=== PATIENT | female | born 1990 | race Caucasian/White ===

== ENCOUNTER 2018-06-24 17:00 | Emergency (ER) | payer MEDICARE, MEDICAID, SELFPAY ==
[2018-06-24 17:02] VITALS: BP 101/62; PULSE 63; RESP 14; TEMP 36.8; O2SAT 95
[2018-06-24] MEDS: predniSONE 20 MG TAB 40 MG PO (18:19)
[2018-06-24] MEDS: Albuterol HFA 8 GM 60 PUFF INH IH (18:30)
--- NOTE | 2018-06-24 18:30 | W.ED.GENAD ---
Discharge Plan Disposition Patient Disposition: HOME Condition: Stable Discharge Details Chief Complaint: SOB Clinical Impression: Asthma exacerbation, Environmental allergies Primary Care Provider: SARAHI,LOCAL ED Provider: Adrien Tucker Home Meds and New Rx's Prescriptions: New prednisone 20 mg tablet 40 mg PO DAILY Qty: 8 RF: 0 loratadine [Claritin] 10 mg tablet 10 mg PO DAILY Qty: 7 RF: 0 Continue buprenorphine HCl 2 MG tablet, sublingual 6 mg Sublingual DAILY RF: 0 albuterol sulfate [ProAir HFA] 200 PUFF HFA aerosol inhaler 200 puff Inhalation Q2H PRN PRN (Reason: Shortness Of Breath) Qty: 1 RF: 0 fluoxetine 20 MG tablet 20 mg PO DAILY Qty: 60 RF: 5 Discharge Instructions Instructions: Asthma (ED) Additional Instructions: Return immediately to the emergency department for any new or worsening symptoms such as fever chills, worsening shortness of breath or any further concerns he may have. Otherwise take medications as prescribed and follow-up with your primary care provider as established by care management for reassessment. Referrals: Primary Care Provider [Outside] (for re-check) Discharge Data Discharge Date/Time-TO BE ENTERED AT DEPARTURE: 06/24/18 18:47 Medical Decision Making Patient presenting to the emergency department for chief complaint of shortness of breath. Patient denies any fever or chills nasal congestion or sore throat but does state some itchy watery eyes and some nasal dryness. Patient reports history of asthma with previous need of admission extending all the way back into childhood. Patient states that she had an old inhaler that she has been using that is not been effective at controlling symptoms. Physical exam shows some prolonged expiration but no significant wheezing, no acute respiratory distress, no cardiac or other noted findings. There is concern for possible asthma exacerbation due to seasonal allergies so patient was placed on prednisone 40 mg daily for 4 days along with given a new inhaler with a spacer to see if this helps her. Patient otherwise being stable with no other acute distress or significant findings I do feel the patient is able to be safely discharged to return for new or worsening symptoms. Patient states that she does not have a local primary care provider so she is placed upon the care management list to arrange a new primary care provider along with a appointment for reassessment preferably in the next week. After discussion of diagnosis and plan of care patient is no further needs, questions, or concerns and states clear understanding to return to the emergency department for any worsening symptoms. HPI General Mode of arrival: ambulatory. Date/Time Provider Initiated Documentation: 06/24/18 18:15. Limitations to Documentation: no limitations. Information obtained by: patient. History of Present Illness 27 year old F presents to the emergency department with the chief complaint of SOB/Asthma, described as moderate, with intensity rated at 5. Quality is described as other (tightness), and is localized to the chest. Patient started experiencing this day(s) (3) and it has been constant. No relieving factors improve symptom(s), No exacerbating factors reported . Patient did receive the following treatments prior to arrival, other (inhaler) Related Data Home Medications Medication Instructions Recorded Confirmed albuterol sulfate [ProAir HFA] 200 puff INHALATION Q2H PRN PRN #1 01/25/17 06/24/18 inh buprenorphine HCl 6 mg SUBLINGUAL DAILY 01/25/17 06/24/18 fluoxetine 20 mg PO DAILY #60 tablet 02/23/17 06/24/18 loratadine [Claritin] 10 mg PO DAILY #7 tab 06/24/18 prednisone 40 mg PO DAILY #8 tab 06/24/18 Previous Rx's Medication Instructions Recorded albuterol sulfate [ProAir HFA] 200 puff INHALATION Q2H PRN PRN #1 01/25/17 inh fluoxetine 20 mg PO DAILY #60 tablet 02/23/17 loratadine [Claritin] 10 mg PO DAILY #7 tab 06/24/18 prednisone 40 mg PO DAILY #8 tab 06/24/18 Allergies Allergy/AdvReac Type Severity Reaction Status Date / Time amoxicillin Allergy Unknown as a kid Unverified 06/24/18 17:15 General Stated Complaint: SOB DARWIN: 3 Review of Systems Constitutional Denies body ache(s), Denies chills and Denies fever(s) Eyes Denies eye discharge and Reports itchy eyes ENT Denies nasal congestion and Denies nasal discharge Cardiovascular Denies chest pain and Reports dyspnea Respiratory Denies cough, Reports dyspnea and Denies wheezing Gastrointestinal Denies abdominal pain, Denies nausea and Denies vomiting Integumentary/Breasts Denies rash Neurologic Denies confusion and Denies sensory deficit Psychiatric Denies confusion Allergic/Immunologic Reports itchy eyes and Denies wheezing [facility] Medical History Asthma (Chronic) Social History Smoking/Tobacco Use Status: Current every day Exam Const General: cooperative, no acute distress and not ill appearing Orientation: alert, awake and oriented x3 HENMT Head: normal to inspection Ears: hearing grossly normal bilaterally and TM's normal bilaterally General nose exam: external nose normal Face and sinus: normal facial exam Mouth: moist mucous membranes Throat: posterior oropharynx normal and tonsils normal Resp Effort & Inspection: normal respiratory effort, able to speak in complete sentences, no audible wheezes, no cough, no respiratory distress and no use of accessory muscles Auscultation: clear to auscultation bilaterally Cardio Rate: regular rate Rhythm: regular rhythm Heart Sounds: S1 normal and S2 normal Skin General skin exam: no rashes or lesions noted Neuro General: alert, awake, oriented x3, moves all extremities and no focal motor deficits Sensory Exam: no sensory deficits noted Course Vital Signs Temperature 36.8 C 06/24/18 17:02 Pulse 63 06/24/18 17:02 Respiratory Rate 14 06/24/18 17:02 Blood Pressure 101/62 06/24/18 17:02 Pulse Oximetry 95 06/24/18 17:02 Temperature 36.8 C 06/24/18 17:02 Temperature Source Skin 06/24/18 17:02 Pulse 63 06/24/18 17:02 Respiratory Rate 14 06/24/18 17:02 Respiratory Effort 06/24/18 17:26 Respiratory Depth Normal 06/24/18 17:26 Respiratory Pattern Normal 06/24/18 17:26 Blood Pressure 101/62 06/24/18 17:02 Blood Pressure Position Sitting 06/24/18 17:02 Pulse Oximetry 95 06/24/18 17:02 Oxygen Delivery Method Room Air 06/24/18 17:02 Oxygen Flow Rate 0 06/24/18 17:02 Pain Level 4 06/24/18 17:02
--- NOTE | 2018-06-24 18:33 | ED.GENADUL_ITS ---
Discharge Plan Disposition Patient Disposition: HOME Condition: Stable Discharge Details Chief Complaint: SOB Clinical Impression: Asthma exacerbation, Environmental allergies Primary Care Provider: SARAHI,LOCAL ED Provider: Adrien Tucker Home Meds and New Rx's Prescriptions: New prednisone 20 mg tablet 40 mg PO DAILY Qty: 8 RF: 0 loratadine [Claritin] 10 mg tablet 10 mg PO DAILY Qty: 7 RF: 0 Continue buprenorphine HCl 2 MG tablet, sublingual 6 mg Sublingual DAILY RF: 0 albuterol sulfate [ProAir HFA] 200 PUFF HFA aerosol inhaler 200 puff Inhalation Q2H PRN PRN (Reason: Shortness Of Breath) Qty: 1 RF: 0 fluoxetine 20 MG tablet 20 mg PO DAILY Qty: 60 RF: 5 Discharge Instructions Instructions: Asthma (ED) Additional Instructions: Return immediately to the emergency department for any new or worsening symptoms such as fever chills, worsening shortness of breath or any further concerns he may have. Otherwise take medications as prescribed and follow-up with your primary care provider as established by care management for reassessment. Referrals: Primary Care Provider [Outside] (for re-check) Discharge Data Discharge Date/Time-TO BE ENTERED AT DEPARTURE: 06/24/18 18:47 Medical Decision Making Patient presenting to the emergency department for chief complaint of shortness of breath. Patient denies any fever or chills nasal congestion or sore throat but does state some itchy watery eyes and some nasal dryness. Patient reports history of asthma with previous need of admission extending all the way back into childhood. Patient states that she had an old inhaler that she has been using that is not been effective at controlling symptoms. Physical exam shows some prolonged expiration but no significant wheezing, no acute respiratory distress, no cardiac or other noted findings. There is concern for possible asthma exacerbation due to seasonal allergies so patient was placed on prednisone 40 mg daily for 4 days along with given a new inhaler with a spacer to see if this helps her. Patient otherwise being stable with no other acute distress or significant findings I do feel the patient is able to be safely discharged to return for new or worsening symptoms. Patient states that she does not have a local primary care provider so she is placed upon the care management list to arrange a new primary care provider along with a appointment for reassessment preferably in the next week. After discussion of diagnosis and plan of care patient is no further needs, questions, or concerns and states clear understanding to return to the emergency department for any worsening symptoms. HPI General Mode of arrival: ambulatory . Date/Time Provider Initiated Documentation: 06/24/18 18:15 . Limitations to Documentation: no limitations . Information obtained by: patient . History of Present Illness 27 year old F presents to the emergency department with the chief complaint of SOB/Asthma, described as moderate, with intensity rated at 5. Quality is described as other (tightness), and is localized to the chest. Patient started experiencing this day(s) (3) and it has been constant. No relieving factors improve symptom(s), No exacerbating factors reported . Patient did receive the following treatments prior to arrival, other (inhaler) Related Data Home Medications Medication Instructions Recorded Confirmed albuterol sulfate [ProAir HFA] 200 puff INHALATION Q2H PRN PRN #1 01/25/1706/24 inh buprenorphine HCl 6 mg SUBLINGUAL DAILY 01/25/17 06/24/18 fluoxetine 20 mg PO DAILY #60 tablet 02/23/17 06/24/18 loratadine [Claritin] 10 mg PO DAILY #7 tab 06/24/18 prednisone 40 mg PO DAILY #8 tab 06/24/18 Previous Rx's Medication Instructions Recorded albuterol sulfate [ProAir HFA] 200 puff INHALATION Q2H PRN PRN #1 01/25/17 inh fluoxetine 20 mg PO DAILY #60 tablet 02/23/17 loratadine [Claritin] 10 mg PO DAILY #7 tab 06/24/18 prednisone 40 mg PO DAILY #8 tab 06/24/18 Allergies Allergy/AdvReac Type Severity Reaction Status Date / Time amoxicillin Allergy Unknown as a kid Unverified 06/24/18 17:15 General Stated Complaint: SOB DARWIN: 3 Review of Systems Constitutional Denies body ache(s), Denies chills and Denies fever(s) Eyes Denies eye discharge and Reports itchy eyes ENT Denies nasal congestion and Denies nasal discharge Cardiovascular Denies chest pain and Reports dyspnea Respiratory Denies cough, Reports dyspnea and Denies wheezing Gastrointestinal Denies abdominal pain, Denies nausea and Denies vomiting Integumentary/Breasts Denies rash Neurologic Denies confusion and Denies sensory deficit Psychiatric Denies confusion Allergic/Immunologic Reports itchy eyes and Denies wheezing [facility] Medical History Asthma (Chronic) Social History Smoking/Tobacco Use Status: Current every day Exam Const General: cooperative, no acute distress and not ill appearing Orientation: alert, awake and oriented x3 HENMT Head: normal to inspection Ears: hearing grossly normal bilaterally and TM's normal bilaterally General nose exam: external nose normal Face and sinus: normal facial exam Mouth: moist mucous membranes Throat: posterior oropharynx normal and tonsils normal Resp Effort & Inspection: normal respiratory effort, able to speak in complete sentences, no audible wheezes, no cough, no respiratory distress and no use of accessory muscles Auscultation: clear to auscultation bilaterally Cardio Rate: regular rate Rhythm: regular rhythm Heart Sounds: S1 normal and S2 normal Skin General skin exam: no rashes or lesions noted Neuro General: alert, awake, oriented x3, moves all extremities and no focal motor deficits Sensory Exam: no sensory deficits noted Course Vital Signs Temperature 36.8 C 06/24/18 17:02 Pulse 63 06/24/18 17:02 Respiratory Rate 14 06/24/18 17:02 Blood Pressure 101/62 06/24/18 17:02 Pulse Oximetry 95 06/24/18 17:02 Temperature 36.8 C 06/24/18 17:02 Temperature Source Skin 06/24/18 17:02 Pulse 63 06/24/18 17:02 Respiratory Rate 14 06/24/18 17:02 Respiratory Effort 06/24/18 17:26 Respiratory Depth Normal 06/24/18 17:26 Respiratory Pattern Normal 06/24/18 17:26 Blood Pressure 101/62 06/24/18 17:02 Blood Pressure Position Sitting 06/24/18 17:02 Pulse Oximetry 95 06/24/18 17:02 Oxygen Delivery Method Room Air 06/24/18 17:02 Oxygen Flow Rate 0 06/24/18 17:02 Pain Level 4 06/24/18 17:02
[2018-06-24 18:45] VITALS: BP 112/80; PULSE 18; RESP 18; TEMP 36.8; O2SAT 99
== END 2018-06-24 18:47 | disposition home or self-care (01) ==
PROVIDERS: Emergency Provider Nurse Practitioner Family
DX: J45.901 Unspecified asthma with (acute) exacerbation (principal); J30.2 Other seasonal allergic rhinitis
CPT/HCPCS: 99283; J7512